=== PATIENT | male | born 1935 ===

== ENCOUNTER 2025-09-17 23:46 | Inpatient (IN) | payer OTHER, MEDICARE ==
[~2025-09-17] VITALS: Ht 175.3 cm; Wt 71.2 kg
[2025-09-18 00:03] LABS: pH Blood Venous 7.43 (7.34-7.37)
[2025-09-18 00:08] LABS: BASOPHILS ABSOLUTE AUTO 0.05 K/mm3 (0.00-0.23); BASOPHILS PERCENT AUTO 1 % (0-2); EOSINOPHILS ABSOLUTE AUTO 0.12 K/mm3 (0.00-0.68); EOSINOPHILS PERCENT AUTO 2 % (0-6); Hematocrit 44.4 % (37.0-53.0); Hemoglobin 15.4 g/dL (13.5-17.5); IMMATURE GRAN ABSOLUTE AUTO 0.02 K/mm3 (0.00-0.10); IMMATURE GRAN PERCENT AUTO 0 % (0-1); LYMPHOCYTES ABSOLUTE AUTO 1.01 K/mm3 (0.84-5.20); LYMPHOCYTES PERCENT AUTO 14 % (21-46); MONOCYTES ABSOLUTE AUTO 0.60 K/mm3 (0.16-1.47); MONOCYTES PERCENT AUTO 8 % (4-13); Mean Corpuscular HGB Conc 34.7 g/dL (31.5-36.5); Mean Corpuscular Volume 98 fL (80-100); NEUTROPHILS ABSOLUTE AUTO 5.55 K/mm3 (1.96-9.15); NEUTROPHILS PERCENT AUTO 76 % (41-73); NRBC ABSOLUTE 0.00 K/mm3 (0.00-0.02); NRBC Auto 0.0 /100 WBC (0.0-0.2); Platelet Count 205 K/mm3 (150-400); RDW Coefficient Variation 14.6 % (11.7-14.2); RDW Standard Deviation 52.9 fL (35.1-46.3)
[2025-09-18 00:24] LABS: D-Dimer, Quantitative 1.13 mg/L FEU (0.00-0.52); Prothrombin Time Results 13.1 Sec (9.7-11.5)
[2025-09-18 00:36] LABS: Alanine Aminotransfer (ALT/SGP 20.0 U/L (12-78); Albumin, Blood 3.2 g/dL (3.4-5.0); Albumin/Globulin Ratio 0.9 (0.8-1.8); Anion Gap 9.0 mmol/L (3-11); Aspartate Aminotrans (AST/SGOT 21.0 U/L (12-37); Bilirubin, Total 0.7 mg/dL (0.1-1.0); Blood Urea Nitrogen 19.0 mg/dL (8-24); CO2, Blood 28.0 mmol/L (21-32); Calcium, Blood 8.8 mg/dL (8.5-10.1); Chloride, Blood 110.0 mmol/L (98-108); Creatinine, Blood 0.86 mg/dL (0.60-1.20); Globulin, Blood 3.6 g/dL (2.2-4.0); Glucose, Blood 117.0 mg/dL (70-99); Magnesium, Blood 2.0 mg/dL (1.6-2.4); Phosphorus, Blood 3.5 mg/dL (2.5-4.9); Potassium, Blood 3.5 mmol/L (3.5-5.5); Sodium, Blood 143.0 mmol/L (136-145); Thyroid Stimulating Hormone 6.98 uIU/mL (0.360-4.800); Total Protein, Blood 6.8 g/dL (6.4-8.2)
[2025-09-18 00:48] LABS: Influenza A, PCR NEGATIVE (NEGATIVE); Influenza B, PCR NEGATIVE (NEGATIVE); Resp Syncytial Virus, PCR NEGATIVE (NEGATIVE); SARS-Cov-2 (COVID-19) PCR, MMC NEGATIVE (NEGATIVE)
[2025-09-18] MEDS ORDERED: Enoxaparin 40 MG/0.4 ML SYR SC SCH (01:20)
[2025-09-18 02:42] LABS: Source, Urine Clean Catch
[2025-09-18 02:46] LABS: Bilirubin, Urine Neg (Neg); Glucose Qualitative, Urine Neg (Neg); Ketones, Urine Neg (Neg); Leukocyte Esterase, Urine 1+ (Neg); Protein, Urine 3+ (Neg); Specific Gravity, Urine 1.015 (1.003-1.022); Urobilinogen, Urine 1+ (Normal)
[2025-09-18 02:52] LABS: Color, Urine Yellow (P-Yellow); Red Blood Cells, Urine 0-2 /hpf (0-2); White Blood Cells, Urine 0-2 /hpf (0-5)
[2025-09-18] MEDS ORDERED: Ondansetron HCl 2 MG / ML 2ML Vial IV PRN (03:00)
[2025-09-18] MEDS ORDERED: FLU VACC TS2025-26(6MOS UP)/PF 45 MCG/0.5 ML SYRINGE IM SCH (03:00)
[2025-09-18] MEDS ORDERED: Heparin Sodium,Porcine/0.5 NS 500 ML IV SCH (03:30)
[2025-09-18 04:15] VITALS: BP 133/75
--- NOTE | 2025-09-18 06:03 | NUR ---
SHIFT SUMMARY PATIENT ARRIVED TO PCU VIA STRETCHER. SLIDE TRANSFER COMPLETED. PATIENT ALERT AND ORIENTED X4. DENIES ANY CHEST PAIN/PRESSURE. ON 3 LITERS O2 VIA NC WITH SPO2 >90%. VITAL SIGNS STABLE. WILL CONTINUE TO MONITOR. CALL LIGHT WITHIN REACH.
[2025-09-18 07:49] VITALS: BP 150/79
[2025-09-18] MEDS ORDERED: GABA100 PO (09:59)
[2025-09-18] MEDS ORDERED: Acetaminophen650 M1 PO (10:01)
[2025-09-18] MEDS ORDERED: DULCOLAX400 MG/5 M PO (10:02)
[2025-09-18] MEDS ORDERED: LOPE2C PO (10:03)
[2025-09-18] MEDS ORDERED: CITALOPRAM HBR10 MG PO (10:04)
[2025-09-18] MEDS ORDERED: OMEP20ER PO (10:05)
[2025-09-18] MEDS ORDERED: ALLO300 PO (10:06)
[2025-09-18] MEDS ORDERED: Voltaren100 GM TOP (10:06)
[2025-09-18] MEDS ORDERED: LOPERAMIDE212 PO (10:08)
[2025-09-18 10:27] LABS: BASOPHILS ABSOLUTE AUTO 0.06 K/mm3 (0.00-0.23); BASOPHILS PERCENT AUTO 1 % (0-2); EOSINOPHILS ABSOLUTE AUTO 0.15 K/mm3 (0.00-0.68); EOSINOPHILS PERCENT AUTO 2 % (0-6); Hematocrit 42.6 % (37.0-53.0); Hemoglobin 14.7 g/dL (13.5-17.5); IMMATURE GRAN ABSOLUTE AUTO 0.02 K/mm3 (0.00-0.10); IMMATURE GRAN PERCENT AUTO 0 % (0-1); LYMPHOCYTES ABSOLUTE AUTO 1.15 K/mm3 (0.84-5.20); LYMPHOCYTES PERCENT AUTO 17 % (21-46); MONOCYTES ABSOLUTE AUTO 0.67 K/mm3 (0.16-1.47); MONOCYTES PERCENT AUTO 10 % (4-13); Mean Corpuscular HGB Conc 34.5 g/dL (31.5-36.5); Mean Corpuscular Volume 98 fL (80-100); NEUTROPHILS ABSOLUTE AUTO 4.64 K/mm3 (1.96-9.15); NEUTROPHILS PERCENT AUTO 69 % (41-73); NRBC ABSOLUTE 0.00 K/mm3 (0.00-0.02); NRBC Auto 0.0 /100 WBC (0.0-0.2); Platelet Count 183 K/mm3 (150-400); RDW Coefficient Variation 14.6 % (11.7-14.2); RDW Standard Deviation 53.3 fL (35.1-46.3)
[2025-09-18 10:47] LABS: Alanine Aminotransfer (ALT/SGP 18.0 U/L (12-78); Albumin, Blood 3.0 g/dL (3.4-5.0); Albumin/Globulin Ratio 1.0 (0.8-1.8); Anion Gap 6.0 mmol/L (3-11); Aspartate Aminotrans (AST/SGOT 20.0 U/L (12-37); Bilirubin, Total 0.9 mg/dL (0.1-1.0); Blood Urea Nitrogen 17.0 mg/dL (8-24); CO2, Blood 33.0 mmol/L (21-32); Calcium, Blood 8.7 mg/dL (8.5-10.1); Chloride, Blood 106.0 mmol/L (98-108); Creatinine, Blood 0.85 mg/dL (0.60-1.20); Globulin, Blood 3.1 g/dL (2.2-4.0); Glucose, Blood 108.0 mg/dL (70-99); Potassium, Blood 2.8 mmol/L (3.5-5.5); Sodium, Blood 142.0 mmol/L (136-145); Total Protein, Blood 6.1 g/dL (6.4-8.2)
[2025-09-18] MEDS ORDERED: Miconazole Nitrate 2% 85 GM PWD TOP PRN (10:55)
[2025-09-18 12:05] VITALS: BP 119/77
[2025-09-18 15:46] VITALS: BP 140/76
--- NOTE | 2025-09-18 17:28 | NUR ---
PT IS A&Ox3 AND ABLE TO MAKE NEEDS KNOWN. HE IS ON 3LNC W/O2 SATS > 92%. HE IS A x1 ASSIST FOR AMBULATION TO THE RECLINER OR BSC. PUREWICK IN PLACE D/T DIURESIS. NO NEEDS OR CONCERNS NOTED @ THIS TIME. BED IN LOW POSITION, BED ALARM ON, CALL LIGHT AND PERSONAL BELONGINGS IN REACH.
[2025-09-18 20:00] VITALS: BP 120/64
[2025-09-19] VITALS: BP 142/83
--- NOTE | 2025-09-19 05:08 | NUR ---
SHIFT NOTE PATIENT HAD A RELATIVELY UNEVENTFUL NIGHT. URINE OUTPUT: 800, INCREASED O2 NEEDS: 4.5L, VS OTHERWISE STABLE. A&OX4.
[2025-09-19 05:38] LABS: BASOPHILS ABSOLUTE AUTO 0.06 K/mm3 (0.00-0.23); BASOPHILS PERCENT AUTO 1 % (0-2); EOSINOPHILS ABSOLUTE AUTO 0.20 K/mm3 (0.00-0.68); EOSINOPHILS PERCENT AUTO 3 % (0-6); Hematocrit 42.2 % (37.0-53.0); Hemoglobin 14.4 g/dL (13.5-17.5); IMMATURE GRAN ABSOLUTE AUTO 0.02 K/mm3 (0.00-0.10); IMMATURE GRAN PERCENT AUTO 0 % (0-1); LYMPHOCYTES ABSOLUTE AUTO 1.20 K/mm3 (0.84-5.20); LYMPHOCYTES PERCENT AUTO 20 % (21-46); MONOCYTES ABSOLUTE AUTO 0.52 K/mm3 (0.16-1.47); MONOCYTES PERCENT AUTO 9 % (4-13); Mean Corpuscular HGB Conc 34.1 g/dL (31.5-36.5); Mean Corpuscular Volume 99 fL (80-100); NEUTROPHILS ABSOLUTE AUTO 4.03 K/mm3 (1.96-9.15); NEUTROPHILS PERCENT AUTO 67 % (41-73); NRBC ABSOLUTE 0.00 K/mm3 (0.00-0.02); NRBC Auto 0.0 /100 WBC (0.0-0.2); Platelet Count 191 K/mm3 (150-400); RDW Coefficient Variation 14.6 % (11.7-14.2); RDW Standard Deviation 52.7 fL (35.1-46.3)
[2025-09-19 06:00] LABS: Anion Gap 8.0 mmol/L (3-11); Blood Urea Nitrogen 18.0 mg/dL (8-24); CO2, Blood 31.0 mmol/L (21-32); Calcium, Blood 8.9 mg/dL (8.5-10.1); Chloride, Blood 107.0 mmol/L (98-108); Creatinine, Blood 0.89 mg/dL (0.60-1.20); Glucose, Blood 98.0 mg/dL (70-99); Potassium, Blood 3.1 mmol/L (3.5-5.5); Sodium, Blood 143.0 mmol/L (136-145)
[2025-09-19 07:33] VITALS: BP 140/76
[2025-09-19 12:17] VITALS: BP 121/72
[2025-09-19 16:31] VITALS: BP 131/93
--- NOTE | 2025-09-19 17:28 | NUR ---
PT IS A&Ox2 AND ABLE TO MAKE NEEDS KNOWN. HE IS ON 3LNC W/O2 SATS > 92%. HE IS A X1 ASSIST TO AMBULATE TO THE RECLINER AND BSC. PUREWICK IN PLACE D/T DIURESING. PT APPEARS TO BE SUNDOWNING A BIT THIS EVENING. NO OTHER NEEDS OR CONCERNS NOTED @ THIS TIME. BED IN LOW POSITION, BED ALARM ON, CALL LIGHT AND PERSONAL BELONGINGS IN REACH.
--- NOTE | 2025-09-19 20:22 | NUR ---
09/19/251949: CALL PLACED TO PHYSICIAN REGARDING PT POTASSIUM OF 3.1 IN THE AM. NO INCIDENCE OF REPLETION FOUND. PHYSICIAN TO PLACE ORDERS FOR REPLETION.
[2025-09-19 20:33] VITALS: BP 126/66
[2025-09-19 23:51] VITALS: BP 135/89
[2025-09-20 03:31] VITALS: BP 128/72
[2025-09-20 03:55] LABS: BASOPHILS ABSOLUTE AUTO 0.07 K/mm3 (0.00-0.23); BASOPHILS PERCENT AUTO 1 % (0-2); EOSINOPHILS ABSOLUTE AUTO 0.17 K/mm3 (0.00-0.68); EOSINOPHILS PERCENT AUTO 2 % (0-6); Hematocrit 46.7 % (37.0-53.0); Hemoglobin 15.9 g/dL (13.5-17.5); IMMATURE GRAN ABSOLUTE AUTO 0.02 K/mm3 (0.00-0.10); IMMATURE GRAN PERCENT AUTO 0 % (0-1); LYMPHOCYTES ABSOLUTE AUTO 1.27 K/mm3 (0.84-5.20); LYMPHOCYTES PERCENT AUTO 18 % (21-46); MONOCYTES ABSOLUTE AUTO 0.62 K/mm3 (0.16-1.47); MONOCYTES PERCENT AUTO 9 % (4-13); Mean Corpuscular HGB Conc 34.0 g/dL (31.5-36.5); Mean Corpuscular Volume 97 fL (80-100); NEUTROPHILS ABSOLUTE AUTO 4.83 K/mm3 (1.96-9.15); NEUTROPHILS PERCENT AUTO 69 % (41-73); NRBC ABSOLUTE 0.00 K/mm3 (0.00-0.02); NRBC Auto 0.0 /100 WBC (0.0-0.2); Platelet Count 220 K/mm3 (150-400); RDW Coefficient Variation 14.4 % (11.7-14.2); RDW Standard Deviation 51.1 fL (35.1-46.3)
[2025-09-20 04:16] LABS: Anion Gap 8.0 mmol/L (3-11); Blood Urea Nitrogen 22.0 mg/dL (8-24); CO2, Blood 30.0 mmol/L (21-32); Calcium, Blood 8.6 mg/dL (8.5-10.1); Chloride, Blood 107.0 mmol/L (98-108); Creatinine, Blood 0.84 mg/dL (0.60-1.20); Glucose, Blood 106.0 mg/dL (70-99); Potassium, Blood 3.0 mmol/L (3.5-5.5); Sodium, Blood 142.0 mmol/L (136-145)
--- NOTE | 2025-09-20 04:50 | NUR ---
CALL PLACED TO DR. POSADA REGARDING PT POTASSIUM OF 3.0. PHYSICIAN TO PLACE REPLETION ORDERS.
--- NOTE | 2025-09-20 06:42 | NUR ---
PT HAS BEEN STABLE WITH VITAL SIGNS THROUGHOUT THE SHIFT. PT IS ON 3L O2 MAINTAINING SPO2 >93%. PT ORIENTATION IS VERY LABILE WITH FREQUENT REORIENTATION NEEDED THROUGHOUT SHIFT. PT IS COOPERATIVE AND PLEASE BUT DOES PULL ON MONITORING WIRES AND PUREWICK REQUIRING FREQUENT REPLACEMENT. PT HAS SET OFF BED ALARM FREQUENTLY WELL. PT IS COOPERATIVE WITH GETTING BACK TO BED. PT DOES NOT USE CALL LIGHT BUT IS ABLE TO MAKE NEEDS KNOWN. POTASSIUM WAS REPLETED THIS AM. PT CONTINUES TO DIURESE WELL WITH GOOD URINARY OUTPUT THIS SHIFT.
[2025-09-20 07:36] VITALS: BP 136/79
[2025-09-20 11:53] VITALS: BP 104/71
[2025-09-20 16:44] VITALS: BP 128/68
--- NOTE | 2025-09-20 18:14 | NUR ---
SHIFT SUMMARY; ASSUMED CARE A 0700. A/A/OX2. PLEASANTLY CONFUSED WITH HX OF DEMENTIA. FOLLOWS INSTRUCTIONS, COOPERATIVE WITH CARE. 3L 02 VIA NC, SATS 90-92%. BP STABLE. MOVES SELF NEEDED ON BED. SBA TO RECLINER CHAIR. BED BATH COMPLETED. PURWICK IN PLACE. TAKES PO MEDS WITH WATER WITHOUT DIFFICULTY. WILL CONTINUE TO MONITOR AND TREAT UNTIL REPORT GIVEN TO NOC SHIFT RN.
[2025-09-20 20:28] VITALS: BP 106/61
[2025-09-21] VITALS (7 sets, daily range): BP systolic 91–135; BP diastolic 45–88
[2025-09-21 04:27] LABS: Anion Gap 9.0 mmol/L (3-11); Blood Urea Nitrogen 26.0 mg/dL (8-24); CO2, Blood 27.0 mmol/L (21-32); Calcium, Blood 8.9 mg/dL (8.5-10.1); Chloride, Blood 109.0 mmol/L (98-108); Creatinine, Blood 0.75 mg/dL (0.60-1.20); Glucose, Blood 108.0 mg/dL (70-99); Potassium, Blood 3.3 mmol/L (3.5-5.5); Sodium, Blood 142.0 mmol/L (136-145)
[2025-09-21] MEDS ORDERED: Magnesium Hydroxide Conc 10 ML UDC PO PRN (05:05)
--- NOTE | 2025-09-21 06:24 | NUR ---
SHIFT SUMMARY: PT IS A&O TO SELF, UNSURE OF WHERE HE IS. ERICA IS PLEASANT AND COOPERATIVE WITH CARE, LAUGHING FREQUENTLY. VSS ON 2L HFNC, SATS >93%, PT DOES BECOME APNEIC WHILE HE IS SLEEPING AND O2 SATS DROP TO 85%, HE QUICKLY RECOVERS. V-PACED IN THE 80'S. C/O PAIN TO HIS LOW BACK, MEDICATED WITH PRN 650 MG PO TYLENOL. ALSO PT S HOME MEDICATIONS WILL GET RESTARTED THIS MORNING, INCLUDING GABAPENTIN. TOLERATING A HEART HEALTHY DIET. X1 ASSIST TO CHAIR. WICKING SYSTEM DRAINING ADEQUATE AMOUNTS OF YELLOW URINE. PT HAS REMOVED THE WICKING SYSTEM INADVERTENTLY. PT HAD ONE INCONTINENT LOOSE BM THIS SHIFT, HE WAS UNAWARE HE HAD EVEN STOOLED. BRIEF IN PLACE AND CHANGED NEEDED. ERICA DOES NOT USE HIS CALL LIGHT, AND REGULARLY SETS HIS BED ALARM OFF. BED IN LOWEST POSITION, CALL LIGHT WITHIN REACH. BED ALARM SET FOR PT'S SAFETY. FREQUENT ROUNDING COMPLETED. 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
[2025-09-21] MEDS ORDERED: Torsemide 20 MG TAB PO SCH (10:00)
--- NOTE | 2025-09-21 16:42 | NUR ---
TELEPHONE CALL TO DR. LOPEZ REGARDING DECREASING BP. OK TO GIVE 1700 COREG, HOLD [address] LOPEZ.
--- NOTE | 2025-09-21 18:26 | NUR ---
SHIFT SUMMARY; ASSUMED CARE AT 0700. A/A/OX3. FOLLOWS INSTRUCTIONS, REPOSITIONS SELF. 1P ASSIST TO RECLINER CHAIR IN AFTERNOON. 2-3L O2 VIA NC TO MAINTAIN SATS OF 92%. SEE PREVIOUS NOTE REGARDING PHONE CALL TO DR. LOPEZ REGARDING BP. EATING AND DRINKING WITHOUT DIFFICULTY. WILL CONTINUE TO MONITOR AND TREAT UNTIL REPORT GIVEN TO NOC SHIFT RN TO ASSUME CARE.
[2025-09-22] VITALS (11 sets, daily range): BP systolic 86–133; BP diastolic 45–85
[2025-09-22 04:02] LABS: BASOPHILS ABSOLUTE AUTO 0.07 K/mm3 (0.00-0.23); BASOPHILS PERCENT AUTO 1 % (0-2); EOSINOPHILS ABSOLUTE AUTO 0.24 K/mm3 (0.00-0.68); EOSINOPHILS PERCENT AUTO 5 % (0-6); Hematocrit 48.7 % (37.0-53.0); Hemoglobin 16.2 g/dL (13.5-17.5); IMMATURE GRAN ABSOLUTE AUTO 0.01 K/mm3 (0.00-0.10); IMMATURE GRAN PERCENT AUTO 0 % (0-1); LYMPHOCYTES ABSOLUTE AUTO 1.27 K/mm3 (0.84-5.20); LYMPHOCYTES PERCENT AUTO 24 % (21-46); MONOCYTES ABSOLUTE AUTO 0.47 K/mm3 (0.16-1.47); MONOCYTES PERCENT AUTO 9 % (4-13); Mean Corpuscular HGB Conc 33.3 g/dL (31.5-36.5); Mean Corpuscular Volume 99 fL (80-100); NEUTROPHILS ABSOLUTE AUTO 3.22 K/mm3 (1.96-9.15); NEUTROPHILS PERCENT AUTO 61 % (41-73); NRBC ABSOLUTE 0.00 K/mm3 (0.00-0.02); NRBC Auto 0.0 /100 WBC (0.0-0.2); Platelet Count 209 K/mm3 (150-400); RDW Coefficient Variation 14.6 % (11.7-14.2); RDW Standard Deviation 53.1 fL (35.1-46.3)
[2025-09-22 04:25] LABS: Anion Gap 8.0 mmol/L (3-11); Blood Urea Nitrogen 31.0 mg/dL (8-24); CO2, Blood 31.0 mmol/L (21-32); Calcium, Blood 9.1 mg/dL (8.5-10.1); Chloride, Blood 106.0 mmol/L (98-108); Creatinine, Blood 0.98 mg/dL (0.60-1.20); Glucose, Blood 96.0 mg/dL (70-99); Potassium, Blood 3.7 mmol/L (3.5-5.5); Sodium, Blood 141.0 mmol/L (136-145)
--- NOTE | 2025-09-22 07:36 | NUR ---
SHIFT SUMMARY: PT IS A&O TO SELF, UNSURE OF WHERE HE IS. ERICA IS PLEASANTLY CONFUSED AND COOPERATIVE WITH CARE. VSS ON 3L HFNC, SATS >93%, PT DOES BECOME APNEIC WHILE HE IS SLEEPING AND O2 SATS DROP TO 85%, PLACED PT ON 5L OXYMASK WHILE HE IS SLEEPING. AV-PACED IN THE 60'S. C/O PAIN TO HIS LOW BACK, MEDICATED WITH PRN 650 MG PO TYLENOL. TOLERATING A HEART HEALTHY DIET. X1 ASSIST TO CHAIR. WICKING SYSTEM DRAINING ADEQUATE AMOUNTS OF YELLOW URINE. NO BM THIS SHIFT, BRIEF IN PLACE. ERICA DOES NOT USE HIS CALL LIGHT, BED ALARM SET FOR PT'S SAFETY. BED IN LOWEST POSITION, CALL LIGHT WITHIN REACH. FREQUENT ROUNDING COMPLETED. CONTACT PRECAUTIONS MAINTAINED FOR MRSA IN HIS URINE.
--- NOTE | 2025-09-22 18:01 | NUR ---
END OF SHIFT SUMMARY PT IS A/O TO SELF BUT ABLE TO MAKE NEEDS KNOWN AND IS AFEBRILE. CONTINUOUS CARDIAC MONITORING IS IN PLACE SHOWING V PACED WITH A HR IN THE 70'S, SBP IS 80'S-100'S. TALKED TO PMD ABOUT SOFT BP'S AND IS AWARE. DISCUSSED SBP OF 91 PRIOR TO AFTERNOON CARVEDILOL, HOSPITALIST WANTED IT TO BE ADMINISTERED W/NO HOLD PARAMETERS SET AT THIS TIME. PT IS ON 3L NC WITH SP02 >92%. PT'S WORK OF BREATHING INCREASES WITH MOVEMENT. PT IS ON CARDIAC DIET AND TOLERATES PO INTAKE WELL WITH REMINDING TO TAKE SMALL SIPS. PUREWICK IS IN PLACE. SCROTUM AND PENIS ARE RED, PENIS HAS SMALL RED PUSTULES. PICTURES IN CHART. PT IS ONE PERSON ASSIST. RAC AND LAC PIV IS IN PLACE. BED IN LOWEST POSITION, CALL LIGHT IN REACH, WILL REPORT TO ONCOMING SHIFT.
[2025-09-23] VITALS (17 sets, daily range): BP systolic 69–113; BP diastolic 38–72
[2025-09-23 03:44] LABS: Anion Gap 8.0 mmol/L (3-11); Blood Urea Nitrogen 36.0 mg/dL (8-24); CO2, Blood 31.0 mmol/L (21-32); Calcium, Blood 8.9 mg/dL (8.5-10.1); Chloride, Blood 106.0 mmol/L (98-108); Creatinine, Blood 1.06 mg/dL (0.60-1.20); Glucose, Blood 93.0 mg/dL (70-99); Potassium, Blood 3.9 mmol/L (3.5-5.5); Sodium, Blood 141.0 mmol/L (136-145)
--- NOTE | 2025-09-23 05:26 | NUR ---
SHIFT SUMMARY: A/Ox1-2 AND COOPERATIVE WITH CARE. INTERMITTENT CONFUSION, BUT ABLE TO BE EASILY REDIRECTED. ABLE TO MAKE HIS NEEDS KNOWN. CARDIAC, REMAINS IN PACED RHYTHM RANGING 60-70'S WITH NO C/O CP, PRESSURE OR PALPITATIONS. BP SOFT AT START OF SHIFT, RECOVERED WELL T/O THE NIGHT. RESPIRATORY, MAINTAINS SPO2 >90% ON 3L NC WITH NO REPORTS OF SOB WHILE AT REST. MILD DYSPNEA NOTED WITH EXERTION. GI/, PUREWICK IN PLACE DRAINING YELLOW URINE TO SUCTION. INTERMITTENT INCONTINENCE OF STOOL. ATTENDS IN PLACE AND CHANGED PRN TO KEEP C/D/I. ABLE TO AMBULATE TO CHAIR WITH 1 PERSON ASSIST AND FWW. DENIES ANY N/V/D OR ABD PAIN T/O THE NIGHT. NO NEW ORDERS AT THIS TIME, WILL REPORT TO ONCOMING RN. ROBERTO QUINN OF THIS NOTE.
--- NOTE | 2025-09-23 17:11 | NUR ---
END OF SHIFT SUMMARY PT IS A/0 X1-2 BUT IS ABLE TO MAKE NEEDS KNOWN AND CAN MOVE EXTREMITIES EQUALLY AND BILATERALLY. CONTINUOUS CARDAIC MONITORING IN PLACE SHOWING V PACED. SBP HAS BEEN 80'S-100'S, TOOK ORTHOSTATIC VITALS AND PT C/O FEELING DIZZY AND LIGHTHEADED WHEN SITTING AND STANDING, PMD IS AWARE AND CHANGED ORDERS. HR HAS BEEN IN THE 70'S. PT IS ON 3L NC WITH SPO2 >92%, PT'S WORK OF BREATHING CAN INCREASE WITH MOVEMENT. PT HAS HAD ONE INCONTINENT BM THIS SHIFT, PUREWICK IS IN PLACE. RFA AND RAC PIV ARE IN PLACE. BED IN LOWEST POSITION, CALL LIGHT IN REACH. WILL REPORT TO ONCOMING SHIFT.
[2025-09-24] VITALS (18 sets, daily range): BP systolic 72–128; BP diastolic 41–83
--- NOTE | 2025-09-24 05:34 | NUR ---
SHIFT SUMMARY ASSUMED CARE OF PT AT APPROXIMATELY 1900. PT WITH SOFT BP S AT SHIFT CHANGE. MAP 60-65. PT ASYMPTOMATIC. DAY SHIFT RN REPORTS THIS THROUGHOUT THE DAY WELL. COREG GIVEN BY DAY SHIFT RN PRIOR TO SHIFT CHANGE. PT SPO2 MID TO UPPER 80S. NC CHANGED TO MASK, PT REPORTS INCREASED COMFORT AND SPO2 >92% ON 4L. PTS BP WITH SLIGHT IMPROVEMENT THROUGHOUT THE SHIFT. PT RESTING COMFORTABLY IN BED. NO C/O CHEST PAIN OR PRESSURE. PT REPOSITIONED Q2H. NO C/O SOB. PT AOX1. PLEASANTLY CONFUSED.
[2025-09-24] MEDS ORDERED: Torsemide 20 MG TAB PO SCH (09:00)
[2025-09-24] MEDS ORDERED: NS 500 ML IV ONE (09:45)
--- NOTE | 2025-09-24 10:00 | NUR ---
Update / Low BP Pt A&O to self. Disoriented to place, date/time. Pt BP maps in 50s. Pt laying down in bed, reporting "I feel okay." Pt then reporting feeling "a little dizzy." w/ order for 500mL IV NS bolus.
[2025-09-24] MEDS ORDERED: Cosyntropin 0.25 MG / ML 1ML Vial IV ONE (10:55)
--- NOTE | 2025-09-24 17:24 | NUR ---
End of Shift Pt sleeping majority of shift. Pt wakes to verbal stimuli. Pt oriented to self & staff caring for pt. Pt reporting current place "[place]" & states "I don't know" when asking current month or year. Pt BP low with MAPs 50s-60s, otherwise VSS ( aware). w/ order for 500 ml NS bolus x1 this shift. Morning & evening coreg dose held per clinical judgment. Physical therapy held today as well d/t pt BP & lack of energy for activity.
[2025-09-25 03:36] VITALS: BP 135/96
[2025-09-25 03:44] VITALS: BP 119/77
[2025-09-25 04:29] LABS: Anion Gap 8.0 mmol/L (3-11); Blood Urea Nitrogen 34.0 mg/dL (8-24); CO2, Blood 26.0 mmol/L (21-32); Calcium, Blood 8.9 mg/dL (8.5-10.1); Chloride, Blood 110.0 mmol/L (98-108); Creatinine, Blood 0.88 mg/dL (0.60-1.20); Glucose, Blood 92.0 mg/dL (70-99); Potassium, Blood 3.9 mmol/L (3.5-5.5); Sodium, Blood 140.0 mmol/L (136-145)
--- NOTE | 2025-09-25 05:04 | NUR ---
SHIFT SUMMARY ASSUMED CARE OF PT AT APPROXIMATELY 1900. PT CONTINUES TO HAVE SOFT BPS THOUGH THERE WAS IMPROVEMENT THROUGHOUT THE EVENING. EVENING DOSE OF COREG HELD BY VALERIE ROSALES D/T SOFT BPS. PT ORIENTED TO SELF. CONTINUES TO STATE THAT HE IS IN [place] AND STATES "I HAVE NO IDEA" WHEN ASKED THE DATE. PT IS PLEASANT AND COOPERATIVE WITH CARES. REPOSITIONED Q2H TO PREVENT INJURY/BREAKDOWN. PUREWICK IN PLACE ON CONTINUOUS SUCTION. MEDICATION ADMINISTERED PER EMAR. PT RESTING COMFORTABLY IN BED. SPO2 >92% VIA OXYMASK AT 3L WHILE SLEEPING. NO C/O CHEST PAIN OR PRESSURE. NO C/O SOB. CALL LIGHT WITHIN REACH. PT ABLE TO MAKE NEEDS KNOWN.
[2025-09-25 07:53] VITALS: BP 123/56
[2025-09-25 12:28] VITALS: BP 93/46
[2025-09-25 15:13] VITALS: BP 104/53
--- NOTE | 2025-09-25 18:32 | NUR ---
ASSUMED CARE AT 1814. PATIENT ARRIVED VIA WHEELCHAIR. ALERT AND ORIENTED X2 WITH SELF AND PERSON. PATIENT TRANSFER 1 PERSON ASSIST TO THE BED. ON 5L N/C AND PUREWICK IN PLACE. PATIENT DENIES PAIN. ORIENTED TO ROOM. BED ALARM ON, LOCKED, AND IN LOWEST POSITION. CALL LIGHT WITHIN REACH. RECEIVED REPORT FROM WILL Boo RN..
[2025-09-25 19:30] VITALS: BP 99/60
[2025-09-26] VITALS (10 sets, daily range): BP systolic 80–126; BP diastolic 46–70
--- NOTE | 2025-09-26 02:29 | NUR ---
AMUSEMENT CENTRE MANAGER SUMMARY BP LOW NORMAL, (99/60), OTHERWISE VSS.BED ALARM ON FOR HIGH FALL PRECAUTIONS. HAS BEEN AWAKE AT INTERVALS, SETTING OFF BED ALARM, STATED HIS BACK WAS "ITCHING". LOTION APPLIED. MALE PUREWICK IN USE, AROLDO RETURNS. OTHERWISE, HAS BEEN RESTING QUIETLY AT INTERVALS. CONTACT PRECAUTIONS CONTINUE. CALL LIGHT IN REACH, RAILS UP X 2 AND BED IN LOW POSITION FOR SAFETY. WILL CONTINUE TO MONITOR BP.
[2025-09-26] MEDS ORDERED: Polyethylene Glycol 3350 17 gm PO PRN (08:15)
[2025-09-26] MEDS ORDERED: Cholecalciferol 1000 Unit Tablet (=25MCG) PO SCH (09:00)
[2025-09-26] MEDS ORDERED: Lactobacil 2-S.Thermo-Bifido 1 1 Cap PO SCH (09:00)
--- NOTE | 2025-09-26 18:23 | NUR ---
SHIFT SUMMARY PATIENT ALERT AND ORIENTED X2. PLEASANT AND RECEPTIVE DURING CARE. TOLERATING PO, PUREWICK IN PLACE. PATIENT ON 5L N/C. NO ACUTE CHANGE THROUGHOUT THE SHIFT, VSS. MEDICATION ADMINISTERED PER EMAR. BED LOCKED AND IN LOWEST POSITION. CALL LIGHT WITHIN REACH.
--- NOTE | 2025-09-26 20:24 | NUR ---
BP LOW 86/44,LEGS ELEVATED BP 87/44. VOICED RIGHT SHOULDER AND RIGHT FLANK PAIN. A/0 X 3. RESPS EVEN. MD NOTIFIED. ORDERS FOR ND IV BOLUS OF 250 ML, MIODODRINE 5 MG PO NOW, MED TELE AND TO F/U WITH BP POST.WILL REASSESS AND CALL MD BACK NEEDED
[2025-09-26] MEDS ORDERED: NS 250 ML IV SCH ×2 (20:30→23:00)
[2025-09-26] MEDS ORDERED: Docusate Sodium/Senna 1 Tab PO SCH (21:00)
--- NOTE | 2025-09-26 22:36 | NUR ---
MD UP TO SEE PT IN ROOM EARLIER. ORDERS FOR BLOOD SUGAR GIVEN. PT DENIES PAIN. A/O X 3-4. RESPS EVEN. O2 PER NC. CALL LIGHT IN REACH
--- NOTE | 2025-09-26 23:42 | NUR ---
post 250 ns bolus ALERT AND OREINTED. DENIES PAIN OR SOB. SMILING. RESPS EVEN. WILL CONTINUE TO MONITOR
[2025-09-27 02:35] LABS: Source, Urine Clean Catch
[2025-09-27 02:50] LABS: Bilirubin, Urine Neg (Neg); Color, Urine Yellow (P-Yellow); Glucose Qualitative, Urine 2+ (Neg); Ketones, Urine Neg (Neg); Leukocyte Esterase, Urine 2+ (Neg); Protein, Urine 1+ (Neg); Specific Gravity, Urine 1.010 (1.003-1.022); Urobilinogen, Urine NORM (Normal)
[2025-09-27 02:58] LABS: Red Blood Cells, Urine 0-2 /hpf (0-2)
--- NOTE | 2025-09-27 03:35 | NUR ---
AIRCRAFT MECHANIC ELECTRICAL AND RADIO SUMMARY A/0 X 3-4. BP LOW AT SHIFT START (87/50). MD NOTIFIED, BOLUS' AND MEDS ORDERED (SEE MD ORDERS AND MED REC FOR DETAILS). BP INCREASED SLIGHTLY, (92/52). MD WAS NOTIFIED AGAIN, MD CAME TO FLOOR TO SEE PT, ORDERED ANOTHER IV BOLUS OF 250 ML. LEGS ELEVATED. SEE VITAL SIGNS IT INCREASED SLOWLY AND DECREASED - FINALLY LAST BP 90/52, BUT PT ASYMPTOMATIC. ON TELE. INCONT OF FECES AND MALE PUREWICK IN USE. CHANGED AND BED BATH GIVEN. HAS BEEN RESTING QUIETLY WITH OCCASIONAL INTEERRUPTIONS. RESTING QUIETLY AT THIS TIME. CALL LIGHT IN REACH, RAILS UP X 2 AND BED IN LOW POSITION FOR SAFETY. ON CONTACT ISOLATION. WILL CONTINUE TO MONITOR.
[2025-09-27 03:46] VITALS: BP 99/52
[2025-09-27 07:35] VITALS: BP 99/53
--- NOTE | 2025-09-27 11:00 | NUR ---
Pt laying in bed awake a/ox 2-3, pleasant and cooperative with care, follows commands well, denies pain at this time, takes po meds whole with water, no diff, lungs are diminished t/o, resp even and unlabored, no cough noted, he is currently on 5 liters 02 via n/c, hrr tele in place running paced rhythm at 60bpm, no edema noted, ppp faint, cap refill <3 sec, vs stable, afebrile, piv to rfa site is clear and patent, btx4, abd flat soft nontender, voids via male purwic, skin has a yeast in nick area otherwise c/d/i, jazmyne grace, call light in reach.
[2025-09-27 11:23] VITALS: BP 83/50
[2025-09-27] MEDS ORDERED: MIRALAX17 GM PO (15:04)
[2025-09-27] MEDS ORDERED: DOXY100 PO (15:05)
[2025-09-27] MEDS ORDERED: JARDIANCE10 MG PO (15:05)
[2025-09-27] MEDS ORDERED: METO25ER PO (15:06)
[2025-09-27] MEDS ORDERED: ALDACTONE25 MG PO (15:07)
[2025-09-27 15:19] VITALS: BP 91/57
[2025-09-27 15:50] VITALS: BP 93/78
--- NOTE | 2025-09-27 17:42 | NUR ---
Pt has been discharged to home, but was unable to return do to time delays, transport arranged for 0930 tomorrow am, son is aware. discussed low b/p with Dr. Tobias, no acute changes this shift, call light in reach.
[2025-09-27 19:39] VITALS: BP 99/52
[2025-09-28 00:02] VITALS: BP 117/75
--- NOTE | 2025-09-28 03:27 | NUR ---
COMMERCIAL LINES MANAGER SUMMARY VSS. BP STRONGER THAN NOTED LAST NIGHT. A/O X 3-4. VERBAL RESPONSE APPROPRIATE TO QUESTIONS ASKED. ADMIT DX CHF EXACERBATION. TELE - AV PACED IN THE 60'S. ON ROOM AIR. USING URINAL. HAS BEEN RESTING QUIETLY WITH FEW INTERRUPTIONS NOTED. REMAINS ON CONTACT PRECAUTIONS. SCHEDULED TO BE DISCHARGED LATER TODAY. CALL LIGHT IN REACH, RAILS UP X 2, BED ALARM ON AND BED IN LOW POSITION FOR SAFETY. WILL CONT TO MONITOR
[2025-09-28 03:46] VITALS: BP 130/67
[2025-09-28 07:57] VITALS: BP 102/74
[2025-09-28 10:57] VITALS: BP 118/65
--- NOTE | 2025-09-28 12:19 | NUR ---
CALL TO [facility] TO ARRANGE RIDE FOR PATIENT DISCHARGING. SPOKE WITH ALLIE, THE VOLUMETRIC WEIGHER WILL BE HERE AT THE PAX ENTRANCE TO [facility] PATIENT AT 1330
--- NOTE | 2025-09-28 15:07 | NUR ---
DISCHARGE AT 1330 PICKED UP BY [facility] AT 1400. PATIENT WAS ESCORTED BY NURSING STAFF IN A WHEELCHAIR TO RIDE FROM [facility] AT THE NORTH ENTRANCE. PATIENT LEFT WITH ALL HIS BELONGINGS AND IN A STABLE CONDITION.
== END 2025-09-28 13:30 | disposition home health service (06) | DRG 291 ==
LOC: ER 23:46 → PCU 09-18 02:34 → MEDS 09-18 02:34 → ERHOLD 09-18 02:34 → PCU 09-18 04:03 → MEDS 09-25 18:15 → ENPENDDIS 09-27 12:56 → EDPENDDIS 09-28 10:14 → EDPENDDISDT 09-28 10:14 → EDPENDDISTM 09-28 10:14 → MEDS 09-28 13:30
PROVIDERS: Emergency Medicine; Internal Medicine; Nurse Practitioner Acute Care; Student in an Organized Health Care Education/Training Program; ADMIT Internal Medicine
DX: I11.0 Hypertensive heart disease with heart failure (principal); I50.21 Acute systolic (congestive) heart failure; J96.01 Acute respiratory failure with hypoxia; J44.9 Chronic obstructive pulmonary disease, unspecified; E87.6 Hypokalemia; M10.9 Gout, unspecified; Z66 Do not resuscitate; F32.A Depression, unspecified; K21.9 Gastro-esophageal reflux disease without esophagitis; M19.09 Primary osteoarthritis, other specified site; B95.62 Methicillin resistant Staphylococcus aureus infection as the cause of diseases classified elsewhere; G30.9 Alzheimer's disease, unspecified; F02.80 Dementia in other diseases classified elsewhere, unspecified severity, without behavioral disturbance, psychotic disturbance, mood disturbance, and anxiety; Z95.0 Presence of cardiac pacemaker
CPT/HCPCS: 36415; 71045; 71260; 80048; 80053; 80400; 81001; 82533; 82803; 82947; 83605; 83735; 83880; 84100; 84443; 84484; 85025; 85379; 85520; 85610; 85730; 87077; 87081; 87086; 87147; 87186; 87637; 93005; 93010; 93306; 94760; 94761; 94762; 97110; 97161; 97530; 99285-25; A9270; J0834; J1644; J1650; J1938; J7030; J7040; J7050; Q9967

== ENCOUNTER 2025-10-13 10:40 | Emergency (ER) | payer OTHER, MEDICARE ==
[~2025-10-13] VITALS: Ht 170.2 cm; Wt 81.7 kg
[~2025-10-13 10:40] MED LIST: ALDACTONE25 MG PO; ALLO300 PO; Acetaminophen650 M1 PO; CITALOPRAM HBR10 MG PO; DOXY100 PO; DULCOLAX400 MG/5 M PO; GABA100 PO; JARDIANCE10 MG PO; LOPE2C PO; LOPERAMIDE212 PO; METO25ER PO; MIRALAX17 GM PO; OMEP20ER PO; Voltaren100 GM TOP
[2025-10-13] MEDS ORDERED: Fleet Enema132 ML PR (13:44)
== END 2025-10-13 14:22 | disposition home or self-care (01) ==
LOC: ER 10:40
DX: S51.811A Laceration without foreign body of right forearm, initial encounter (principal); S00.83XA Contusion of other part of head, initial encounter; S70.02XA Contusion of left hip, initial encounter; I50.22 Chronic systolic (congestive) heart failure; J44.9 Chronic obstructive pulmonary disease, unspecified; K21.9 Gastro-esophageal reflux disease without esophagitis; G30.9 Alzheimer's disease, unspecified; F02.80 Dementia in other diseases classified elsewhere, unspecified severity, without behavioral disturbance, psychotic disturbance, mood disturbance, and anxiety; Z88.0 Allergy status to penicillin; Z79.84 Long term (current) use of oral hypoglycemic drugs; Z79.899 Other long term (current) drug therapy; W18.30XA Fall on same level, unspecified, initial encounter
CPT/HCPCS: 70450; 73502; 99284-25; A9270